=== PATIENT | female | born 1960 ===

== ENCOUNTER → 2024-10-01 12:35 | Outpatient (BNVA) | payer MEDICARE, MEDICAID, SELFPAY | PROVIDERS: PCP Nurse Practitioner Family; Referring Provider Nurse Practitioner Family; Visit Provider Internal Medicine Pulmonary Disease | DX: J44.89 Other specified chronic obstructive pulmonary disease (principal); Z01.818 Encounter for other preprocedural examination; Z87.891 Personal history of nicotine dependence | CPT/HCPCS: 36415; 99215 ==

== ENCOUNTER 2024-10-01 13:52 | Outpatient (REF) | payer MEDICARE, MEDICAID, SELFPAY ==
[2024-10-01 14:00] LABS: Abs Immature Grans 0.02 10^3/uL (0.0-0.06); HCT 36.3 % (36.0-46.0); HGB 12.2 g/dL (11.2-15.7); Immature Grans % 0.3 %; MCH 31.4 pg (27.0-33.0); MCHC 33.6 % (32.0-36.0); MCV 93 fL (80-95); MPV 8.6 fL (8.0-11.0); Platelet Count 451 10^3/uL (130-400); RBC 3.89 10^6/uL (3.93-5.22); RDW 12.7 % (11.7-14.6); RDW-SD 43.6 fL; WBC 5.87 10^3/uL (4.4-10.8)
== END 2024-10-01 13:53 | disposition home or self-care (01) ==
LOC: LBN 13:52
PROVIDERS: PCP Nurse Practitioner Family; Visit Provider Internal Medicine Pulmonary Disease
DX: J44.9 Chronic obstructive pulmonary disease, unspecified (principal)
CPT/HCPCS: 82785; 85025

== ENCOUNTER → 2024-10-29 10:36 | Outpatient (BNVA) | payer MEDICARE, MEDICAID, SELFPAY | PROVIDERS: Referring Provider Internal Medicine; Visit Provider Surgery | DX: D12.6 Benign neoplasm of colon, unspecified (principal); J44.9 Chronic obstructive pulmonary disease, unspecified; J45.909 Unspecified asthma, uncomplicated | CPT/HCPCS: 99214 ==

== ENCOUNTER 2024-11-20 08:06 | Day surgery (SDC) | payer MEDICARE, MEDICAID, SELFPAY ==
[2024-11-20 08:41] VITALS: BP 132/61; PULSE 59; RESP 16; TEMP 36.2; O2SAT 98
[2024-11-20] MEDS: Lactated Ringers 1,000 ML 80 ML IV (08:52)
--- NOTE | 2024-11-20 09:17 | W.PM.DSUDISC ---
Date of service: 11/20/24 Discharge Plan Disposition Patient Disposition: Home Condition: Stable Discharge Details Attending Provider: Deja Lin Primary Care Provider: Shannon Phan Home Meds and New Rx's Prescriptions: Continued ipratropium-albuterol 0.5 mg-3 mg(2.5 mg base)/3 mL solution for nebulization 3 ml inhalation QID PRN fluticasone propionate [Flonase Allergy Relief] 50 mcg/actuation spray,suspension 2 spray intranasal DAILY Rx Instructions: administer into each nostril nicotine (polacrilex) 4 mg lozenge 4 mg buccal DIRECTED PRN albuterol sulfate [Ventolin HFA] 90 mcg/actuation HFA aerosol inhaler 2 puff inhalation 6XD PRN Trelegy Ellipta 200-62.5-25 mcg blister with device 1 inh inhalation DAILY Qty: 60 6RF loratadine 10 mg tablet 10 mg PO DAILY roflumilast 500 mcg tablet 500 mcg PO DAILY montelukast 10 mg tablet 10 mg PO DAILY Dupixent Syringe 200 mg/1.14 mL syringe 200 mg subcut Q2W Discharge Instructions Additional Instructions: Two polyps seen and removed from the right side of the colon. I will see what that larger polyp shows on biopsy before we decide when to have another round of colonoscopy. we will discuss this in office. I dont think you will need the colon removed, I think we can get this polyp problem taken care of with a few colonoscopies. see me as scheduled. Stand Alone Forms: Anesthesia Discharge Inst., Colonoscopy Post Instructions, Reynaldo Yancey (DSU) Activity:: Activity as Tolerated Diet:: As Tolerated Discharge Orders Discharge Orders: Discharge Order (Routine); Ordered 11/20/24 Ordered By: Deja Lin DS: Diagnosis Discharge Diagnosis (1) Tubular adenoma of colon: Status: Acute (2) Polyp of ascending colon: Status: Acute (3) Polyp of cecum: Status: Acute
--- NOTE | 2024-11-20 09:19 | W.COLOREPORT ---
Date of service: 11/20/24 Time of Service: 10:58 Colonoscopy Report Pre-op diagnosis general: Ascending colon polyp Post-op diagnosis procedure note: same Procedure: Colonoscopy Surgeon: Deja Lin Anesthesia Type: General:No Airway Estimated blood loss (mL): 0 Pathology: other Complications: None Prep: Miralax/Dulcolax Procedure Description: Informed consent was obtained and the patient was taken to the procedure area. The patient was placed in left lateral decubitus position on the procedure table. Timeout was performed. Anesthesia was induced. A lubricated colonoscope was inserted through the anus and passed to the cecum. The cecum was identified by the ileocecal valve and the appendiceal orifice. The scope was then slowly withdrawn and the colonic and rectal mucosa examined. TI intubated and appears normal. Cecum polyp flat and rug-like with adenomatous textured surface. Irregular shape, 15mm by 10mm. Excised piecemeal with hot and cold snare, cold forceps, and pieces retrieved with Talley net, suction trap, and forcep. Sent as cecum polyp. Mucosa closed with three Resolution endoclips. Ascending colon with an 8mm by 5mm flat polyp. Excised with cold snare and retrieved with suction trap. Small hematoma formed in the submucosa so two resolution endoclips were used to close the mucosa and assure hemostasis. No other mass lesions or polyps. Significant sigmoid diverticulosis was seen. The scope was retroflexed in the anorectal junction examined. Uncomplicated internal hemorrhoids present. Assessment and plan; Large cecum polyp Ascending colon polyp Diverticulosis Successful endoscopic polypectomy performed. Will assess path of polyps and determine timing of next colonoscopy. Will hold off on hemicolectomy at this time, I was able to remove the polyp of concern. .
[2024-11-20 09:43] VITALS: BMI 16.3
--- NOTE | 2024-11-20 09:43 | W.ANESPRE ---
General Info Date of Service Date Performed: 11/20/24 Height: 5 ft Weight: 37.9 kg Body Mass Index (BMI): 16.3 Surgical Procedure: Operation Date: 11/20/24 10:05 Proposed Procedure Side Surgeon marc Lin MD Meds Allergies and Home Medications Allergies Allergy/AdvReac Type Severity Reaction Status Date / Time animal dander Allergy Unknown Other (See Verified 11/20/24 08:40 Comment) house dust Allergy Unknown Other (See Verified 11/20/24 08:40 Comment) orange Allergy Unknown Other (See Verified 11/20/24 08:40 Comment) prednisone Allergy Unknown Other (See Verified 11/20/24 08:40 Comment) apple Allergy Unknown Other (See Uncoded 11/20/24 08:40 Comment) peanuts Allergy Unknown Other (See Uncoded 11/20/24 08:40 Comment) pollen Allergy Unknown Other (See Uncoded 11/20/24 08:40 Comment) shellfish Allergy Unknown Other (See Uncoded 11/20/24 08:40 Comment) Home Medication ?Medication ?Instructions ?Recorded albuterol sulfate 90 mcg/actuation 2 puff inhalation 6XD PRN 12/06/21 aerosol inhaler (Ventolin HFA) fluticasone propionate 50 2 spray intranasal DAILY 12/06/21 mcg/actuation nasal spray,suspension (Flonase Allergy Relief) ipratropium 0.5 mg-albuterol 3 mg 3 ml inhalation QID PRN 12/06/21 (2.5 mg base)/3 mL nebulization soln nicotine (polacrilex) 4 mg buccal 4 mg buccal DIRECTED PRN 12/06/21 lozenge fluticasone fur. 200 mcg-umeclid 1 inh inhalation DAILY #60 ea 08/10/22 62.5 mcg-vilant 25 mcg inhalat.powder (Trelegy Ellipta) loratadine 10 mg tablet 10 mg PO DAILY 07/25/24 montelukast 10 mg tablet 10 mg PO DAILY 07/25/24 roflumilast 500 mcg tablet 500 mcg PO DAILY 07/25/24 dupilumab 200 mg/1.14 mL 200 mg subcut Q2W 11/18/24 subcutaneous syringe ([employer]) Current Visit Medications: Current Medications Generic Name Dose Route Start Last Admin Trade Name Freq PRN Reason Stop Dose Admin Ringer's Solution 1,000 mls @ 80 mls/hr 11/20/24 06:00 11/20/24 08:52 IV 11/20/24 23:59 80 mls/hr INFUSION BRUNA Administration IV Miscellaneous Supplies 1 each 11/20/24 06:00 Iv Access IV 11/20/24 23:59 DIRECTED BRUNA Sodium Biphosphate/Sodium Phosphate 133 ml 11/20/24 06:00 Na Phosphate Enema-Adult 133 Ml Btl ME 11/20/24 23:59 DIRECTED PRN Sodium Chloride 0 ml 11/20/24 06:00 Normal Saline Flush 10 Ml Syr IV 11/20/24 23:59 PRN PRN Sodium Chloride 0 ml 11/20/24 06:00 Normal Saline 10 Ml Vial IJ 11/20/24 23:59 DIRECTED PRN Sterile Water 0 ml 11/20/24 06:00 Water,Injection,Sterile 10 Ml Vial IJ 11/20/24 23:59 DIRECTED PRN PFSH Active Problems Active Problems: Problem Status Onset Code Tubular adenoma of colon Acute ~07/09/24 D12.6 Preoperative evaluation to rule out surgical contraindication Acute Z01.818 Gout, unspecified Chronic M10.9 Periodic limb movement disorder Acute G47.61 Asthma-COPD overlap syndrome Acute J44.9 Radial fracture Acute S52.90XA Osteoporosis Chronic M81.0 Scoliosis Acute M41.9 Allergic sinusitis Acute J30.9 Tobacco dependence Acute F17.200 Radial styloid tenosynovitis Acute M65.4 Idiopathic osteoarthritis Acute M19.90 COPD (chronic obstructive pulmonary disease) Chronic J44.9 Cervical radiculopathy Acute M54.12 Carpal tunnel syndrome of right wrist Acute G56.01 Asthma Chronic J45.909 Acute exacerbation of chronic obstructive airways disease Acute J44.1 Acute bronchitis Acute J20.9 Medical History Medical History Pneumonia (~08/2024) Lumbar radiculopathy Age-related osteoporosis without current pathological fracture Surgical History Surgical History Hx of laminectomy cervical spine, pt unsure at what levels H/O arthroscopy of elbow Hx of tubal ligation History of colonoscopy through stoma, with biopsy (03/11/21) Tobacco Smoking/Tobacco Use Status: Current every day Tobacco Type: cigarettes Smoking cigarettes per day: 2 and smokeless tobacco Alcohol Alcohol Intake: current Alcohol intake frequency: a few times a week Alcohol type: beer Substance Use Substance use: Never Substance use type: does not use Vital Signs and Lab Results Vital Signs Most Recent Vital Signs in EMR: Most Recent Vital Signs Temp Pulse Resp BP Pulse Ox 36.2 C L 59 L 16 132/61 98 11/20/24 08:41 11/20/24 08:41 11/20/24 08:41 11/20/24 08:41 11/20/24 08:41 Anesthesia Assessment and Plan Anesthesia History Personal History: PONV Family History: No Family History of Anesthesia Complications Exercise Tolerance Exercise Tolerance: Metabolic Equivalents>4 Pertinent Negatives Pertinent Negatives: No Symptoms of GERD Cardiac & Pulmonary Exam Cardiac Exam: Normal S1/S2 Heart Sounds Pulmonary Exam: Clear Bilateral Breath Sounds Implantable Cardiac Device Does patient have a Pacemaker or an ICD?: No Airway Exam Known Difficult Airway: No Mallampati Class: 2 Mouth Opening: Normal (> 3cm) Thyromental Distance: Greater than 3 cm Neck Range of Motion: Full ROM Neck Circumference: Normal Teeth Condition: Normal Dentition ASA Classification ASA Score: ASA 3 Emergency Case?: No NPO Status NPO Status: NPO Clears >2 hours, Solids >8 hours Anesthesia Plan Resuscitation Status: Full Code Anesthesia Technique: General Anesthesia Airway Planned: Natural Airway Monitors Used: Standard Monitors
--- NOTE | 2024-11-20 10:15 | BOWEL_PTH ---
PATIENT: Meli Doty LOC: [facility] U#:[id number] AGE/SX: 64/F ROOM: RE11/20/[address]: Deja Lin MD : 1960 BED: DIS: 11/20/2024 SPEC #: [id number] RECD: 11/20/24 12:27 STATUS: ROSEMARY RETl #: [id number] GABBI: 11/20/24 10:[address]: Deja Lin DEPT: Surgical Specimen RECD BY: Kate Hernandez ENTERED: 11/20/24 12:28 SP TYPE: Bowel OTHR DR: Shannon Phan Tissues: 1 - BIOPSY BOWEL 2 - BIOPSY BOWEL Procedures: GROSS AND MICRO LEVEL 4 Comments: [id number]
[2024-11-20 10:50] VITALS: BP 112/81; PULSE 73; RESP 14; TEMP 36.2; O2SAT 99
--- NOTE | 2024-11-20 10:54 | W.ANESPOSTOP ---
Postoperative Evaluation Date, Time and Location Date Performed: 11/20/24 Time Performed: 10:54 Patient Location: Day Surgery Unit Vital Signs Most Recent Imported Vital Signs: Most Recent Vital Signs Temp Pulse Resp BP Pulse Ox 36.2 C L 73 14 112/81 99 11/20/24 10:50 11/20/24 10:50 11/20/24 10:50 11/20/24 10:50 11/20/24 10:50 Pain Score Most Recent Pain Score: Most Recent Pain Score Pain Level 0 11/20/24 10:50 Assessment Mental Status: Awake (Alert & Oriented to Patient Baseline) Airway and Respiratory Function: Patent airway with normal (patient baseline) respiratory exam Cardiovascular Function: Hemodynamically Stable Hydration Status: Adequately Hydrated Nausea & Vomiting: No Nausea or Vomiting Pain: Pt. Denies Any Pain Peripheral Nerve Block: Patient did not receive a nerve block
[2024-11-20 11:22] VITALS: BP 126/64; PULSE 58; RESP 16; TEMP 36.3; O2SAT 99
== END 2024-11-20 11:35 | disposition home or self-care (01) ==
LOC: SUR 08:08
PROVIDERS: PCP Internal Medicine; Visit Provider Surgery
PROC: 0DJD8ZZ Inspection of Lower Intestinal Tract, Via Natural or Artificial Opening Endoscopic (ICD-10-PCS; CPT 45378; principal; 2024-11-20 10:00)
DX: D12.2 Benign neoplasm of ascending colon (principal); K57.30 Diverticulosis of large intestine without perforation or abscess without bleeding; D37.4 Neoplasm of uncertain behavior of colon
CPT/HCPCS: 45385; 45380; 88305; J2003; J2704

== ENCOUNTER → 2024-11-24 13:33 | Outpatient (BNVA) | payer MEDICARE, MEDICAID, SELFPAY | PROVIDERS: PCP Internal Medicine; Referring Provider Nurse Practitioner Family; Visit Provider Internal Medicine Pulmonary Disease | DX: J45.909 Unspecified asthma, uncomplicated (principal); F17.210 Nicotine dependence, cigarettes, uncomplicated; J44.9 Chronic obstructive pulmonary disease, unspecified | CPT/HCPCS: 99214; G0296 ==

== ENCOUNTER → 2024-12-03 10:43 | Outpatient (BNVA) | payer MEDICARE, MEDICAID, SELFPAY | PROVIDERS: PCP Internal Medicine; Visit Provider Surgery | DX: D12.6 Benign neoplasm of colon, unspecified (principal) | CPT/HCPCS: 99213 ==